=== PATIENT | female | born 1965 | race Caucasian/White ===

== ENCOUNTER → 2019-09-29 11:38 | Outpatient (CLI) | payer MEDICARE, SELFPAY ==
--- NOTE | ~2019-09-29 | XR_ITS ---
EXAMINATION: XR hip BI wo pelvis INDICATION: Bilateral hip pain TECHNIQUE: Two views of each hip are obtained. COMPARISON: 10/13/2004 FINDINGS: Bone alignment is normal. There is no acute fracture. An intramedullary estefanía is seen in the right femur traversing a healed mid shaft fracture. There is no evidence of hardware failure or loose stephanie. Mild bilateral hip osteoarthritis is noted. There are phleboliths of the pelvis. IMPRESSION: 1. No acute osseous abnormality. Reviewed, dictated and finalized at location A.
--- NOTE | ~2019-09-29 | XR_ITS ---
EXAMINATION: XR lumbar spine 2-3V DATE: 09/29/2019 12:34 INDICATION: Lumbar radiculopathy TECHNIQUE: Anteroposterior and lateral views of the lumbar spine, and cone-down lateral view of the l umbosacral junction were obtained. COMPARISON: 08/03/2015 FINDINGS: There are bilateral L5 pars defects with chronic and unchanged grade 2 anterolisthesis of L 5 on S1. There are 2 mm of stable retrolisthesis of L4 on L5. Vertebral body alignment is otherwise m aintained. There is advanced loss of intervertebral disc space height at L5-S1 and mild loss of inter vertebral disc space height at L4-5. No fracture is identified. IMPRESSION: 1. Chronic grade 1 anterolisthesis of L5 on S1 related to bilateral L5 pars defects, unchanged. Other gallardo mild to moderate lumbar spondylosis. Reviewed, dictated and finalized at location A. IMPRESSION: 1. Chronic grade 1 anterolisthesis of L5 on S1 related to bilateral L5 pars def ects, unchanged. Otherwise mild to moderate lumbar spondylosis.
--- NOTE | ~2019-09-29 | XR_ITS ---
EXAMINATION: XR shoulder LT min 2V EXAM DATE: 09/29/2019 12:35 INDICATION: No known recent injury provided at this time. Pain of the left shoulder. TECHNIQUE: The following left shoulder projections obtained: frontal projection with internal rotatio n, frontal projection with external rotation, Grashey, and axillary (4+ views). There is no prior st udy for comparison. FINDINGS: No evidence of left shoulder rotator cuff calcific tendinosis. There is mild glenohumeral and acromioclavicular joint primary osteoarthritis. There are no acute fractures or dislocations haven ntified. There is no subcutaneous gas. The soft tissue is unremarkable. There are no radiopaque f oreign bodies. IMPRESSION: Mild left shoulder osteoarthritis. Reviewed, dictated and finalized at location B.
== END ==
PROVIDERS: PCP Nurse Practitioner Family
DX: M79.622 Pain in left upper arm (principal); M25.559 Pain in unspecified hip; M47.26 Other spondylosis with radiculopathy, lumbar region; M19.012 Primary osteoarthritis, left shoulder
CPT/HCPCS: 72100; 73030; 73521

== ENCOUNTER → 2022-09-19 13:13 | Outpatient (CLI) | payer OTHER, SELFPAY ==
--- NOTE | ~2022-09-19 | XR_ITS ---
EXAM: XR_CERV2-3V_CR DATE: 09/19/2022 14:05 HISTORY: Cervical radiculopathy. HX of pinched nerve. No pain today . COMPARISON: 06/18/2014. FINDINGS: Craniocervical association and atlantoaxial joint are aligned. Moderate atlantoaxial joint degenerative change. No prevertebral soft tissue swelling. 2 mm retrolisthesis at C5-6. Moderate deg enerative disc narrowing and marginal osteophytosis at C5-6. Multilevel moderate facet sclerosis and hypertrophy. IMPRESSION: Grade 1 retrolisthesis at C5-6. Moderate degenerative disc disease at C5-6. Multilevel mo derate facet arthropathy. Reviewed, dictated and finalized at location K. IMPRESSION: Grade 1 retrolisthesis at C5-6. Moderate degenerative disc disease at C5-6. Multilevel moderate facet arthropathy.
--- NOTE | ~2022-09-19 | XR_ITS ---
Left Knee Technique: AP and lateral views were obtained. Clinical History: Pain Findings: No fracture or dislocation is seen. Osseous alignment is anatomic. There is mild spurring a t the medial joint line. Small joint effusion is seen. Impression: Mild degenerative spurring at the medial joint line. Small joint effusion. Reviewed, dictated and finalized at [facility]. Impression: Mild degenerative spurring at the medial joint line. Small joint effusion.
--- NOTE | ~2022-09-19 | XR_ITS ---
EXAM: XR lumbar spine 2-3V DATE: 09/19/2022 14:06 HISTORY: Chronic lumbar pain. Radiculopathy. NKI. No surgery. . COMPARISON: 09/29/2019. FINDINGS: 5 nonrib-bearing lumbar-type vertebral bodies. Pedicles intact. Stable 11 mm anterolisthes is at L5-S1. Stable minimal, 2 mm retrolisthesis at L4-5. Vertebral body heights preserved. Multileve l degenerative disc narrowing and marginal osteophytosis, severe at L5-S1. Likely bilateral pars defe cts at L5. No fracture or dislocation. Unfused posterior arch at L5. Minimal aortic calcification, wi thout evident aneurysm. No fracture or acute malalignment IMPRESSION: Grade 2 anterolisthesis at L5-S1, likely with bilateral pars defects. Severe degenerative disc disease at L5-S1. Multilevel moderate facet arthropathy. Reviewed, dictated and finalized at location K. IMPRESSION: Grade 2 anterolisthesis at L5-S1, likely with bilateral pars defect s. Severe degenerative disc disease at L5-S1. Multilevel moderate facet arthrop athy.
--- NOTE | ~2022-09-19 | XR_ITS ---
Right Knee Technique: AP and lateral views were obtained. Clinical History: Pain Findings: No fracture or dislocation is seen. Osseous alignment is anatomic. Femoral intramedullary r od is partially imaged with distal interlocking screw. Joint spaces are preserved without degenerativ e or erosive change. Probable small joint effusion is seen. Impression: Small joint effusion. Partially imaged femoral intramedullary estefanía. Reviewed, dictated and finalized at location . Impression: Small joint effusion. Partially imaged femoral intramedullary estefanía.
== END ==
PROVIDERS: PCP Pain Medicine Interventional Pain Medicine; Visit Provider Pain Medicine Interventional Pain Medicine
DX: M54.17 Radiculopathy, lumbosacral region (principal); M54.12 Radiculopathy, cervical region; G89.4 Chronic pain syndrome; M17.9 Osteoarthritis of knee, unspecified; Z51.81 Encounter for therapeutic drug level monitoring; M51.37 Other intervertebral disc degeneration, lumbosacral region; M25.461 Effusion, right knee; M25.462 Effusion, left knee
CPT/HCPCS: 72040; 72100; 73560